=== PATIENT | female | born 1960 | race Caucasian/White ===

== ENCOUNTER 2020-11-02 06:58 | Day surgery (SDC) | payer OTHER ==
[2020-10-31 12:52] VITALS: BMI 26.1
[2020-11-02] MEDS ORDERED: PROPOFOL 20 ML ONE ×2 (08:09)
[2020-11-02] MEDS ORDERED: LIDOCAINE HCL/PF 2% SDV 5ML VIAL ONE (08:09)
[2020-11-02 09:32] VITALS: BP 127/72; PULSE 66; TEMP 97.6
== END 2020-11-02 09:32 | disposition home or self-care (01) ==
LOC: FASU-ENDO 06:58
PROVIDERS: ATTEND Internal Medicine Gastroenterology
PROC: 0DBK8ZX Excision of Ascending Colon, Via Natural or Artificial Opening Endoscopic, Diagnostic (ICD-10-PCS; principal; 2020-11-02 08:22)
DX: Z12.11 Encounter for screening for malignant neoplasm of colon (principal); K63.5 Polyp of colon; Z88.8 Allergy status to other drugs, medicaments and biological substances
CPT/HCPCS: 88305-TC

== ENCOUNTER 2020-12-19 04:29 | Day surgery (SDC) | payer OTHER ==
[2020-12-13 19:39] VITALS: BMI 27.4
[2020-12-19] MEDS ORDERED: LACTATED RINGERS SOLUTION 1,000 ML IV SCH (12:00)
[2020-12-19] MEDS ORDERED: ACETAMINOPHEN 325 MG TABLET (FP) PO PRN (12:00)
[2020-12-19] MEDS ORDERED: ONDANSETRON 4 MG/2 ML VIAL IVPUSH PRN (12:00)
[2020-12-19] MEDS ORDERED: MIDAZOLAM HCL 2 MG/2 ML SINGLE DOSE VIAL ONE (12:10)
[2020-12-19 14:14] VITALS: BP 158/78; PULSE 77; TEMP 97
[2020-12-19] MEDS ORDERED: ONDANSETRON 4 MG/2 ML VIAL ONE (14:18)
[2020-12-19] MEDS ORDERED: ACETAMINOPHEN 325 MG TABLET (FP) ONE (14:19)
== END 2020-12-19 15:14 | disposition home or self-care (01) ==
LOC: JASU-SURG 04:29
PROVIDERS: ATTEND Urology
PROC: 0TF3XZZ Fragmentation in Right Kidney Pelvis, External Approach (ICD-10-PCS; principal; 2020-12-19 12:00)
DX: N20.0 Calculus of kidney (principal)